=== PATIENT | female | born 1965 | race Caucasian/White ===

== ENCOUNTER 2020-05-22 07:52 | Day surgery (SDC) | payer OTHER ==
[~2020-05-22] VITALS: Ht 160 cm; Wt 44.8 kg
[2020-05-22] MEDS ORDERED: EUTHYROX125 MCG PO (08:16)
[2020-05-22] MEDS ORDERED: POTCHL20ER PO (08:16)
[2020-05-22] MEDS ORDERED: FLUT1DIS2 INH (08:17)
--- NOTE | 2020-05-22 08:31 | NUR ---
Ambulatory in Day SurgeryPatient states colon prep results BRIGHT RED WITH A GREEN TINT.History, Chart, Medications and Allergies reviewed before start of procedure.Lungs clear T/O to Auscultation. Patient confirms NPO status and agrees with scheduled surgery.
--- NOTE | 2020-05-22 08:34 | NUR ---
PT STATES SHE HAS NOT HAD A PERIOD FOR 4 YEARS.
--- NOTE | 2020-05-22 09:09 | NUR ---
05/22/20 0909 ShaynaKenna R History, Chart, Medications and Allergies reviewed before start of procedure.Patient confirms NPO status and agrees with scheduled surgery.3-LEAD EKG REVIEWED WITH PHYSICIAN PRIOR TO START OF PROCEDURE.MONITOR INTACT WITH CONTINUOUS PULSE OXIMETRY AND INTERMITTENT BP.O2 VIA N/C INTACT THROUGHOUT SEDATION/PROCEDURE. PATIENT DETERMINED TO BE ASA APPROPRIATE FOR PROPOFOL SEDATION PRIOR TO START OF PROCEDURE BY DR. BRITO
--- NOTE | 2020-05-22 10:13 | NUR ---
Ambulatory in Day SurgeryPatient up to Ambulate independently. Gait steady. Discharge instructions reviewed with patient. Patient verbalizes understanding. Copy given to patient to take home.Lungs clear T/O to Auscultation. Patient States Post-Procedure ride home has been arranged. Discharged via wheelchair to private car for ride home.
== END 2020-05-22 10:17 | disposition home or self-care (01) ==
LOC: ORSCMMR 07:52 → ORD 09:00 → ORSCMMR 10:17
PROVIDERS: Internal Medicine Gastroenterology
PROC: 0DBK8ZX Excision of Ascending Colon, Via Natural or Artificial Opening Endoscopic, Diagnostic (ICD-10-PCS; principal; 2020-05-22 09:00)
PROC: 0DBN8ZX Excision of Sigmoid Colon, Via Natural or Artificial Opening Endoscopic, Diagnostic (ICD-10-PCS; principal; 2020-05-22 09:00)
DX: Z12.11 Encounter for screening for malignant neoplasm of colon (principal); Z86.010 Personal history of colon polyps; K63.5 Polyp of colon; D12.2 Benign neoplasm of ascending colon; K57.30 Diverticulosis of large intestine without perforation or abscess without bleeding; J45.909 Unspecified asthma, uncomplicated; E03.9 Hypothyroidism, unspecified; Z79.899 Other long term (current) drug therapy
CPT/HCPCS: 88305; J2250; J2704; J7120

== ENCOUNTER 2024-07-15 08:35 | Emergency (ER) | payer OTHER ==
[~2024-07-15] VITALS: Ht 160 cm; Wt 42.6 kg
[~2024-07-15 08:35] MED LIST: EUTHYROX125 MCG PO; FLUT1DIS2 INH; POTCHL20ER PO
[2024-07-15 09:23] LABS: BASOPHILS ABSOLUTE AUTO 0.08 K/mm3 (0.00-0.23); BASOPHILS PERCENT AUTO 2 % (0-2); EOSINOPHILS ABSOLUTE AUTO 0.36 K/mm3 (0.00-0.68); EOSINOPHILS PERCENT AUTO 8 % (0-6); Hematocrit 38.1 % (33.0-51.0); Hemoglobin 13.1 g/dL (11.5-16.0); IMMATURE GRAN ABSOLUTE AUTO 0.01 K/mm3 (0.00-0.10); IMMATURE GRAN PERCENT AUTO 0 % (0-1); LYMPHOCYTES ABSOLUTE AUTO 1.39 K/mm3 (0.84-5.20); LYMPHOCYTES PERCENT AUTO 32 % (21-46); MONOCYTES ABSOLUTE AUTO 0.44 K/mm3 (0.16-1.47); MONOCYTES PERCENT AUTO 10 % (4-13); Mean Corpuscular HGB 35.4 pg (26.0-34.0); Mean Corpuscular HGB Conc 34.4 g/dL (31.5-36.5); Mean Corpuscular Volume 103 fL (80-100); Mean Platelet Volume 10.2 fL (9.1-12.4); NEUTROPHILS ABSOLUTE AUTO 2.05 K/mm3 (1.96-9.15); NEUTROPHILS PERCENT AUTO 47 % (41-73); Platelet Count 247 K/mm3 (150-400); RDW Coefficient Variation 16.2 % (11.7-14.2); RDW Standard Deviation 61.5 fL (35.1-46.3); White Blood Cell Count 4.33 K/mm3 (4.00-11.30)
[2024-07-15 09:55] LABS: Albumin, Blood 3.3 g/dL (3.4-5.0); Albumin/Globulin Ratio 0.8 (0.8-1.8); Bun/Creatinine Ratio 6.8 (12.0-20.0); Calcium, Blood 10.1 mg/dL (8.5-10.1); Creatinine, Blood 0.73 mg/dL (0.40-1.00); Globulin, Blood 4.1 g/dL (2.2-4.0); Total Protein, Blood 7.4 g/dL (6.4-8.2)
[2024-07-15 10:42] LABS: Source, Urine Clean Catch
[2024-07-15 10:53] LABS: Bilirubin, Urine Neg (Neg); Blood, Urine 1+ (Neg); Glucose Qualitative, Urine Neg (Neg); Ketones, Urine 1+ (Neg); Leukocyte Esterase, Urine Neg (Neg); Nitrite, Urine Neg (Neg); Protein, Urine Neg (Neg); Urobilinogen, Urine NORM (Normal)
[2024-07-15 11:08] LABS: Appearance, Urine Clear (Clear); Color, Urine Yellow (P-Yellow)
[2024-07-15 11:09] LABS: Bacteria Not Seen /hpf; Red Blood Cells, Urine 0-2 /hpf (0-2); Squamous Epithelial Cells Rare /hpf (Few); White Blood Cells, Urine Not Seen /hpf (0-5)
[2024-07-15] MEDS ORDERED: Flagyl500 MG PO (12:04)
[2024-07-15] MEDS ORDERED: Cipro500 MG PO (12:04)
[2024-07-15 12:26] VITALS: BP 109/71
== END 2024-07-15 12:26 | disposition home or self-care (01) ==
LOC: ER 08:35
PROVIDERS: Student in an Organized Health Care Education/Training Program
DX: K52.9 Noninfective gastroenteritis and colitis, unspecified (principal); Z87.891 Personal history of nicotine dependence; J45.909 Unspecified asthma, uncomplicated; Z88.0 Allergy status to penicillin; Z88.2 Allergy status to sulfonamides; Z88.8 Allergy status to other drugs, medicaments and biological substances; Z79.899 Other long term (current) drug therapy
CPT/HCPCS: 74177; 80053; 81001; 81025; 83690; 85025; 93005; 93010; 99284-25; Q9967

== ENCOUNTER 2024-11-03 07:19 | Day surgery (SDC) | payer OTHER ==
[~2024-11-03] VITALS: Ht 160 cm; Wt 43.8 kg
[~2024-11-03 07:19] MED LIST changes: +Cipro500 MG PO; +Flagyl500 MG PO
[2024-11-03] MEDS ORDERED: MIRALAX17 GM (07:44)
[2024-11-03] MEDS ORDERED: PANT40 (07:44)
[2024-11-03] MEDS ORDERED: Lactated Ringer's 1,000 ML IV ONE ×2 (08:16→08:45)
[2024-11-03] MEDS ORDERED: propofoL 50 ML IV ONE (08:16)
[2024-11-03 10:22] VITALS: BP 111/71
== END 2024-11-03 10:15 | disposition home or self-care (01) ==
LOC: ORSCSDS 07:19
DX: K62.5 Hemorrhage of anus and rectum (principal); D12.0 Benign neoplasm of cecum; D12.2 Benign neoplasm of ascending colon; K64.8 Other hemorrhoids; Z86.0100 Personal history of colon polyps, unspecified; K44.9 Diaphragmatic hernia without obstruction or gangrene; K21.9 Gastro-esophageal reflux disease without esophagitis; Z80.0 Family history of malignant neoplasm of digestive organs; E78.5 Hyperlipidemia, unspecified; K59.00 Constipation, unspecified; R12 Heartburn; Z87.891 Personal history of nicotine dependence; Z86.0102 Personal history of hyperplastic colon polyps; Z86.0101 Personal history of adenomatous and serrated colon polyps; Z79.899 Other long term (current) drug therapy
CPT/HCPCS: 88305; 88342; J2704; J7120

== ENCOUNTER 2025-01-03 22:05 | Observation (INO) | payer OTHER ==
[~2025-01-03] VITALS: Ht 160 cm; Wt 43.6 kg
[~2025-01-03 22:05] MED LIST changes: +MIRALAX17 GM; +PANT40
[2025-01-03 23:09] LABS: BASOPHILS PERCENT AUTO 1 % (0-2); EOSINOPHILS ABSOLUTE AUTO 0.03 K/mm3 (0.00-0.68); EOSINOPHILS PERCENT AUTO 0 % (0-6); Hematocrit 36.4 % (33.0-51.0); Hemoglobin 10.6 g/dL (11.5-16.0); IMMATURE GRAN ABSOLUTE AUTO 0.43 K/mm3 (0.00-0.10); IMMATURE GRAN PERCENT AUTO 2 % (0-1); LYMPHOCYTES ABSOLUTE AUTO 2.94 K/mm3 (0.84-5.20); LYMPHOCYTES PERCENT AUTO 12 % (21-46); MONOCYTES ABSOLUTE AUTO 0.85 K/mm3 (0.16-1.47); MONOCYTES PERCENT AUTO 3 % (4-13); Mean Corpuscular HGB Conc 29.1 g/dL (31.5-36.5); Mean Corpuscular Volume 106 fL (80-100); NEUTROPHILS ABSOLUTE AUTO 20.74 K/mm3 (1.96-9.15); NEUTROPHILS PERCENT AUTO 82 % (41-73); NRBC ABSOLUTE 0.13 K/mm3 (0.00-0.02); NRBC Auto 0.5 /100 WBC (0.0-0.2); Platelet Count 245 K/mm3 (150-400); RDW Coefficient Variation 21.2 % (11.7-14.2); RDW Standard Deviation 81.9 fL (35.1-46.3); Red Blood Cell Count 3.42 M/mm3 (3.80-5.20); White Blood Cell Count 25.19 K/mm3 (4.00-11.30)
[2025-01-03 23:34] LABS: Albumin, Blood 3.3 g/dL (3.4-5.0); Albumin/Globulin Ratio 0.8 (0.8-1.8); Bilirubin, Total 0.6 mg/dL (0.1-1.0); Bun/Creatinine Ratio 8.3 (12.0-20.0); Calcium, Blood 8.3 mg/dL (8.5-10.1); Creatinine, Blood 1.09 mg/dL (0.40-1.00); Globulin, Blood 3.9 g/dL (2.2-4.0); Potassium, Blood 4.6 mmol/L (3.5-5.5); Total Protein, Blood 7.2 g/dL (6.4-8.2)
[2025-01-03] MEDS ORDERED: Ondansetron HCl 2 MG / ML 2ML Vial IV ONE (23:50)
[2025-01-03] MEDS ORDERED: Diazepam 5 MG / ML 2ML SYR IV ONE (23:50)
[2025-01-03] MEDS ORDERED: NS 1,000 ML IV SCH (23:50)
[2025-01-04] MEDS ORDERED: ChlordiazePOXIDE 25 MG Cap PO PRN (05:25)
[2025-01-04] MEDS ORDERED: Acetaminophen 325 MG TABLET PO PRN (05:25)
[2025-01-04] MEDS ORDERED: Ondansetron HCl 2 MG / ML 2ML Vial IV PRN (05:30)
[2025-01-04] MEDS ORDERED: LORazepam 1 MG Tab PO PRN (05:30)
[2025-01-04] MEDS ORDERED: Ketorolac Tromethamine 15mg Vial IV PRN (05:35)
[2025-01-04] MEDS ORDERED: Thiamine HCl 100 MG in NS 50 ML IV SCH (06:00)
[2025-01-04] MEDS ORDERED: Lactated Ringer's 1,000 ML IV SCH ×2 (06:00→17:45)
[2025-01-04] MEDS ORDERED: Folic Acid 1 MG in NS 50 ML IV SCH (06:00)
[2025-01-04 06:18] LABS: IMMATURE RETIC FRACTION 20.4 % (2.3-16.0); RETICULOCYTE ABSOLUTE 0.0846 M/mm3 (0.0200-0.1100); RETICULOCYTE COUNT PERCENT 2.99 % (0.50-2.50)
[2025-01-04 06:42] LABS: Ethanol (Alcohol), Blood, Med <3 mg/dL; Ferritin, Serum 159 ng/mL (8-252); Iron Serum 165 ug/dL (50-170); Percent Saturation 67.3 % (15.0-50.0); Total Iron Binding Capacity 245 ug/dL (250-450)
[2025-01-04 07:00] LABS: Phosphorus, Blood 3.6 mg/dL (2.5-4.9)
[2025-01-04] MEDS ORDERED: LEVOTHYROXINE112 M18 PO (07:15)
[2025-01-04] MEDS ORDERED: GABA100 PO (07:16)
--- NOTE | 2025-01-04 07:42 | NUR ---
REPORT RECIEVED FROM ER NURSE AT [id number].
[2025-01-04] MEDS ORDERED: PANT40 PO (08:16)
[2025-01-04] MEDS ORDERED: MIRALAX17 GM PO (08:17)
[2025-01-04] MEDS ORDERED: Docusate Sodium 100 MG Cap PO SCH (09:00)
[2025-01-04] MEDS ORDERED: Pantoprazole Sodium 40 MG Tab PO SCH (09:35)
[2025-01-04] MEDS ORDERED: Levothyroxine Sodium 0.125 MG Tab PO SCH (09:35)
[2025-01-04] MEDS ORDERED: Bisacodyl 10 MG Supp PR PRN (11:00)
[2025-01-04 11:12] LABS: BASOPHILS ABSOLUTE AUTO 0.05 K/mm3 (0.00-0.23); BASOPHILS PERCENT AUTO 0 % (0-2); EOSINOPHILS ABSOLUTE AUTO 0.05 K/mm3 (0.00-0.68); EOSINOPHILS PERCENT AUTO 0 % (0-6); Hematocrit 29.5 % (33.0-51.0); Hemoglobin 8.9 g/dL (11.5-16.0); IMMATURE GRAN ABSOLUTE AUTO 0.08 K/mm3 (0.00-0.10); IMMATURE GRAN PERCENT AUTO 1 % (0-1); LYMPHOCYTES ABSOLUTE AUTO 1.08 K/mm3 (0.84-5.20); LYMPHOCYTES PERCENT AUTO 9 % (21-46); MONOCYTES ABSOLUTE AUTO 0.64 K/mm3 (0.16-1.47); MONOCYTES PERCENT AUTO 5 % (4-13); Mean Corpuscular HGB 30.9 pg (26.0-34.0); Mean Corpuscular HGB Conc 30.2 g/dL (31.5-36.5); Mean Corpuscular Volume 102 fL (80-100); Mean Platelet Volume 10.5 fL (9.1-12.4); NEUTROPHILS ABSOLUTE AUTO 9.87 K/mm3 (1.96-9.15); NEUTROPHILS PERCENT AUTO 84 % (41-73); Platelet Count 167 K/mm3 (150-400); RDW Standard Deviation 76.5 fL (35.1-46.3); Red Blood Cell Count 2.88 M/mm3 (3.80-5.20); White Blood Cell Count 11.77 K/mm3 (4.00-11.30)
[2025-01-04 11:28] LABS: Albumin, Blood 2.9 g/dL (3.4-5.0); Albumin/Globulin Ratio 0.9 (0.8-1.8); Bilirubin, Total 0.9 mg/dL (0.1-1.0); Calcium, Blood 7.7 mg/dL (8.5-10.1); Globulin, Blood 3.3 g/dL (2.2-4.0); Magnesium, Blood 1.4 mg/dL (1.6-2.4); Potassium, Blood 4.3 mmol/L (3.5-5.5); Total Protein, Blood 6.2 g/dL (6.4-8.2)
[2025-01-04 11:35] VITALS: BP 98/63
[2025-01-04] MEDS ORDERED: Lactulose 20 GM/30 ML UDC PO SCH (13:00)
[2025-01-04 15:55] VITALS: BP 118/79
--- NOTE | 2025-01-04 17:54 | NUR ---
SHIFT SUMMARY PT A/OX4 AND COOPERATIVE OF CARE. PT ABLE TO EXPRESS NEEDS AND CALLS APPROPIATE. PT INDEPENDENT IN ROOM AND BED, TOLERATES WELL. PT VSS THROUGHOUT SHIFT WITH O2 SATS IN THE 90'S ON RA. NO REPORT OF CHEST PAIN/PRESSURE THROUGOUT SHIFT. PT REPORT NAUSEA THIS MORNING, IMPROVED THIS EVENING. PT REPORTED CRAMPING OF STOMACH REGION RELATED TO CONSTIPATION, TREATED PER EMAR. PT ABLE TO HAVE A COUPLE SMALL BUT HARD STOOLS AT BEGINNING OF SHIFT. PT ABLE TO HAVE MULTPILE OTHER BM'S, NOTIFIED AND LACTULOSE DC'D. PT ABLE TO TOLERATE LIQUIDS AND LITTLE SOLID FOODS THIS EVENING. PT TO BEDSIDE TWICE THIS SHIFT AND UPDATED OF PLAN OF CARE.
[2025-01-04 19:19] VITALS: BP 106/57
[2025-01-05] VITALS (7 sets, daily range): BP systolic 92–114; BP diastolic 59–76
[2025-01-05 04:07] LABS: BASOPHILS ABSOLUTE AUTO 0.04 K/mm3 (0.00-0.23); BASOPHILS PERCENT AUTO 0 % (0-2); EOSINOPHILS ABSOLUTE AUTO 0.16 K/mm3 (0.00-0.68); EOSINOPHILS PERCENT AUTO 2 % (0-6); Hematocrit 26.6 % (33.0-51.0); Hemoglobin 8.3 g/dL (11.5-16.0); IMMATURE GRAN ABSOLUTE AUTO 0.05 K/mm3 (0.00-0.10); IMMATURE GRAN PERCENT AUTO 1 % (0-1); LYMPHOCYTES ABSOLUTE AUTO 0.49 K/mm3 (0.84-5.20); LYMPHOCYTES PERCENT AUTO 5 % (21-46); MONOCYTES ABSOLUTE AUTO 0.25 K/mm3 (0.16-1.47); MONOCYTES PERCENT AUTO 3 % (4-13); Mean Corpuscular HGB Conc 31.2 g/dL (31.5-36.5); Mean Platelet Volume 9.9 fL (9.1-12.4); NEUTROPHILS ABSOLUTE AUTO 9.04 K/mm3 (1.96-9.15); NEUTROPHILS PERCENT AUTO 90 % (41-73); NRBC ABSOLUTE 0.02 K/mm3 (0.00-0.02); NRBC Auto 0.2 /100 WBC (0.0-0.2); Platelet Count 141 K/mm3 (150-400); RDW Coefficient Variation 20.8 % (11.7-14.2); RDW Standard Deviation 72.4 fL (35.1-46.3); Red Blood Cell Count 2.77 M/mm3 (3.80-5.20); White Blood Cell Count 10.03 K/mm3 (4.00-11.30)
[2025-01-05 04:12] LABS: Mean Corpuscular Volume 96 fL (80-100)
--- NOTE | 2025-01-05 04:19 | NUR ---
SHIFT SUMMARY. PATIENT IS ALERT AND ORIENTED X4, CALLS APPROPRIATELY AND IS ABLE TO MAKE HER NEEDS KNOWN. PATIENT IS INDEPENDENT IN ROOM. TAKES MEDICATIONS WHOLE WITH WATER W/O DIFFICULTY. PATIENT HAS REPORTED LOOSE/WATERY STOOLS THIS SHIFT-DURING THE DAYSHIFT ON 01/04/25 PATIENT RECEIVED MEDICATIONS TO AID IN RELIEF OF CONSTIPATION. PATIENT SELF REPORTS BOWEL MOVEMENTS. PATIENT HAS DENIED CHEST PAIN/PRESSIRE/TIGHTNESS THIS SHIFT. REPORTS NO PAIN. PATIENT IS PLEASANT AND COOPERATIVE WITH CARE. PATIENT REPORTS THAT SHE FEELS FULL AND SWOLLEN FROM THE FLUIDS AND THAT IT IS UNCOMFORTABLE. PATIENTS VSS, AFEBRILE, AND NO NAUSEA THIS SHIFT. ROUNDING DONE PER UNIT PROTOCOL. BED IS LOCKED IN THE LOWEST POSITION WITH CALL LIGHT IN REACH, CARE IS ONGOING.
[2025-01-05 05:14] LABS: Albumin, Blood 2.6 g/dL (3.4-5.0); Albumin/Globulin Ratio 0.9 (0.8-1.8); Beta-hydroxybutyrate 6.9 mg/dL (0.2-2.8); Bilirubin, Total 0.7 mg/dL (0.1-1.0); Bun/Creatinine Ratio 5.4 (12.0-20.0); Calcium, Blood 8.4 mg/dL (8.5-10.1); Creatinine, Blood 0.74 mg/dL (0.40-1.00); Magnesium, Blood 1.4 mg/dL (1.6-2.4); Potassium, Blood 3.3 mmol/L (3.5-5.5); Total Protein, Blood 5.6 g/dL (6.4-8.2)
[2025-01-05] MEDS ORDERED: Potassium Chloride 10 Meq Tablet SA PO ONE (08:30)
[2025-01-05] MEDS ORDERED: Magnesium Sulf 2 GM/Water 50ML 50 ML IV ONE (08:30)
[2025-01-05 08:58] LABS: Free Thyroxine 1.1 ng/dL (0.70-1.60); Thyroid Stimulating Hormone 7.46 uIU/mL (0.360-4.800)
[2025-01-05] MEDS ORDERED: Formoterol/Mometasone MDI 5/100 mcg 13 GM INH SCH (12:55)
--- NOTE | 2025-01-05 15:25 | NUR ---
SHIFT SUMMARY/ HAND OFF TO TITA PT A/OX4 AND COOPERATIVE OF CARE. PT ABLE TO EXPRESS NEEDS AND CALLS APPORPIATE. PT VSS THROUGHOUT SHIFT WITH O2 SATS IN KIKO 90'S ON RA. NO REPORT OF CHEST PAIN/PRESSURE THROUGHOUT SHIFT. NO REPORT OF SOB/DYSPNEA THROUGHOUT SHIFT. NO REPORT OF N/V. PT INDEPENDENT IN ROOM AND BED. PT ENDORSED PAIN TO HER JAW RELATED TO CHEWING, STATED THAT IT "FEELS LIKE THE PAIN FROM CHEWING SOMETHING VERY SOUR." NOTIFIED. PT SEEN BY DENTAL HYGENIST TODAY, SEE NOTES.
--- NOTE | 2025-01-05 20:49 | NUR ---
TRANSFER OF CARE PT A&O X4, CALM, COOPERATIVE TO CARE, CIWAS PRN. LAST CIWA OF 1 FOR A HEADACHE. PER PT SHE REPORTS HEADACHE RELATED TO EATING DINNER. HR IN THE 70'S-80'S, SR. SHE DENIES ANY CP/PRESSURE, NUMB/TINGLING, SBP STABLE. O2 >92% ON RA. SHE DENIES ANY SOB. +BS, SHE DENIES ANY N/V, SHE REPORTS LOOSE BM T/O NIGHT. PT RESTIN IN BED CALL LIGHT IN REACH. PT MEDICAL STATUS WITH TELEMETRY. PT HAS ROOM AVAILABLE UPSTAIRS. REPORT GIVEN TO MEDICAL FLOOR NURSE.
--- NOTE | 2025-01-05 21:27 | NUR ---
PT TRANSFERED TO MEDICAL FLOOR WITH THIS RN VIA WHEELCHAIR.
[2025-01-06 05:05] LABS: BASOPHILS ABSOLUTE AUTO 0.05 K/mm3 (0.00-0.23); BASOPHILS PERCENT AUTO 1 % (0-2); EOSINOPHILS ABSOLUTE AUTO 0.17 K/mm3 (0.00-0.68); EOSINOPHILS PERCENT AUTO 3 % (0-6); Hematocrit 27.3 % (33.0-51.0); Hemoglobin 8.6 g/dL (11.5-16.0); IMMATURE GRAN ABSOLUTE AUTO 0.02 K/mm3 (0.00-0.10); IMMATURE GRAN PERCENT AUTO 0 % (0-1); LYMPHOCYTES ABSOLUTE AUTO 0.99 K/mm3 (0.84-5.20); LYMPHOCYTES PERCENT AUTO 18 % (21-46); MONOCYTES ABSOLUTE AUTO 0.18 K/mm3 (0.16-1.47); MONOCYTES PERCENT AUTO 3 % (4-13); Mean Corpuscular HGB 30.9 pg (26.0-34.0); Mean Corpuscular HGB Conc 31.5 g/dL (31.5-36.5); Mean Corpuscular Volume 98 fL (80-100); Mean Platelet Volume 10.2 fL (9.1-12.4); NEUTROPHILS PERCENT AUTO 75 % (41-73); Platelet Count 144 K/mm3 (150-400); RDW Coefficient Variation 21.3 % (11.7-14.2); RDW Standard Deviation 74.4 fL (35.1-46.3); Red Blood Cell Count 2.78 M/mm3 (3.80-5.20); White Blood Cell Count 5.61 K/mm3 (4.00-11.30)
[2025-01-06 05:55] VITALS: BP 106/69
[2025-01-06 06:22] LABS: Albumin, Blood 2.6 g/dL (3.4-5.0); Albumin/Globulin Ratio 0.8 (0.8-1.8); Beta-hydroxybutyrate 1.9 mg/dL (0.2-2.8); Bilirubin, Total 0.4 mg/dL (0.1-1.0); Bun/Creatinine Ratio 4.3 (12.0-20.0); Calcium, Blood 7.9 mg/dL (8.5-10.1); Creatinine, Blood 0.69 mg/dL (0.40-1.00); Globulin, Blood 3.2 g/dL (2.2-4.0); Magnesium, Blood 1.8 mg/dL (1.6-2.4); Phosphorus, Blood 1.7 mg/dL (2.5-4.9); Potassium, Blood 3.1 mmol/L (3.5-5.5); Total Protein, Blood 5.8 g/dL (6.4-8.2)
--- NOTE | 2025-01-06 07:31 | NUR ---
SHIFT SUMMARY; AFTER TRANSFER VIA W/C FROM [facility] AT 2104, PT. C/O HEADACHE. TYLENOL GIVEN. TELE SR 76 SLEPT THE REST OF THE NIGHT.
[2025-01-06 07:56] VITALS: BP 113/69
[2025-01-06] MEDS ORDERED: Potassium Chloride 20 MEQ TabCR PO SCH (09:00)
[2025-01-06] MEDS ORDERED: Zinc Sulfate 220 MG Cap (Provides 50MG) PO SCH (09:00)
[2025-01-06] MEDS ORDERED: Folic Acid 1 MG TAB PO SCH (09:00)
[2025-01-06] MEDS ORDERED: Thiamine HCl 100 MG Tab PO SCH (09:00)
[2025-01-06] MEDS ORDERED: FOLI1 PO (10:43)
[2025-01-06] MEDS ORDERED: B-1100 M1 PO (10:44)
--- NOTE | 2025-01-06 11:05 | NUR ---
DISCHARGE PT AOX4, COOPERATIVE, ABLE TO MAKE NEEDS KNOWN. PT IS IND IN ROOM . CONTINENET. TELE AND IV DC'D BY GUEST ATTENDANT. THIS RN WENT OVER DC PAPER WORK WITH PT AND FAMILY MEMBER. PT DID OPT TO AMBULATE OUT OF HOSPITAL OVER WC.
[2025-01-07 02:43] LABS: ZINC,SERUM/PLASMA 41.6 ug/dL (60.0-120.0)
== END 2025-01-06 11:03 | disposition home or self-care (01) ==
LOC: ER 22:05 → ERHOLD 22:06 → PCU 22:06 → MEDS 01-05 21:08
PROVIDERS: Emergency Medicine; Internal Medicine; ADMIT Student in an Organized Health Care Education/Training Program
DX: R53.1 Weakness (principal); E87.29 Other acidosis; F10.20 Alcohol dependence, uncomplicated; K70.10 Alcoholic hepatitis without ascites; D53.9 Nutritional anemia, unspecified; E86.0 Dehydration; N17.9 Acute kidney failure, unspecified; E03.9 Hypothyroidism, unspecified; K21.9 Gastro-esophageal reflux disease without esophagitis; K44.9 Diaphragmatic hernia without obstruction or gangrene; K64.8 Other hemorrhoids; E16.2 Hypoglycemia, unspecified; D72.829 Elevated white blood cell count, unspecified; Z87.891 Personal history of nicotine dependence; Z88.0 Allergy status to penicillin; Z88.2 Allergy status to sulfonamides; Z88.8 Allergy status to other drugs, medicaments and biological substances; Z79.899 Other long term (current) drug therapy
CPT/HCPCS: 36415; 74177; 76705; 80053; 80320; 82010; 82607; 82728; 82746; 82947; 83540; 83550; 83605; 83690; 83735; 84100; 84439; 84443; 84630; 85025; 85045; 93005; 93010; 94640; 94664; 94760; 96361; 96365-59; 96366; 96367; 96368; 96375; 96376; 97112; 97161; 99285-25; A9270; G0378; J1885; J2405; J3360; J3411; J3475; J7030; J7120; Q9967

== ENCOUNTER 2025-05-22 15:34 | Observation (INO) | payer OTHER ==
[~2025-05-22] VITALS: Ht 160 cm; Wt 42.6 kg
[~2025-05-22 15:34] MED LIST changes: +B-1100 M1 PO; +FOLI1 PO; +GABA100 PO; +LEVOTHYROXINE112 M18 PO; +MIRALAX17 GM PO; +PANT40 PO
[2025-05-22] MEDS ORDERED: Metoclopramide HCl 5MG / ML 2ML Vial IV ONE (16:35)
[2025-05-22] MEDS ORDERED: NS 1,000 ML IV SCH ×2 (16:35→18:30)
[2025-05-22 16:39] LABS: BASOPHILS ABSOLUTE AUTO 0.11 K/mm3 (0.00-0.23); BASOPHILS PERCENT AUTO 1 % (0-2); EOSINOPHILS ABSOLUTE AUTO 0.00 K/mm3 (0.00-0.68); EOSINOPHILS PERCENT AUTO 0 % (0-6); Hematocrit 35.5 % (33.0-51.0); Hemoglobin 10.3 g/dL (11.5-16.0); IMMATURE GRAN ABSOLUTE AUTO 0.17 K/mm3 (0.00-0.10); IMMATURE GRAN PERCENT AUTO 1 % (0-1); LYMPHOCYTES ABSOLUTE AUTO 1.36 K/mm3 (0.84-5.20); LYMPHOCYTES PERCENT AUTO 7 % (21-46); MONOCYTES ABSOLUTE AUTO 1.27 K/mm3 (0.16-1.47); MONOCYTES PERCENT AUTO 7 % (4-13); Mean Corpuscular HGB Conc 29.0 g/dL (31.5-36.5); Mean Corpuscular Volume 101 fL (80-100); NEUTROPHILS ABSOLUTE AUTO 16.17 K/mm3 (1.96-9.15); NEUTROPHILS PERCENT AUTO 85 % (41-73); NRBC ABSOLUTE 0.04 K/mm3 (0.00-0.02); NRBC Auto 0.2 /100 WBC (0.0-0.2); Platelet Count 619 K/mm3 (150-400); RDW Coefficient Variation 23.0 % (11.7-14.2); RDW Standard Deviation 84.2 fL (35.1-46.3)
[2025-05-22 17:27] LABS: Alanine Aminotransfer (ALT/SGP 130.0 U/L (12-78); Albumin, Blood 3.7 g/dL (3.4-5.0); Albumin/Globulin Ratio 1.0 (0.8-1.8); Anion Gap 31.0 mmol/L (3-11); Aspartate Aminotrans (AST/SGOT 784.0 U/L (12-37); Bilirubin, Total 1.1 mg/dL (0.1-1.0); Blood Urea Nitrogen 8.0 mg/dL (8-24); CO2, Blood 11.0 mmol/L (21-32); Calcium, Blood 9.3 mg/dL (8.5-10.1); Chloride, Blood 100.0 mmol/L (98-108); Creatinine, Blood 1.05 mg/dL (0.40-1.00); Globulin, Blood 3.8 g/dL (2.2-4.0); Glucose, Blood 68.0 mg/dL (70-99); Potassium, Blood 4.5 mmol/L (3.5-5.5); Sodium, Blood 137.0 mmol/L (136-145); Thyroid Stimulating Hormone 0.49 uIU/mL (0.360-4.800); Total Protein, Blood 7.5 g/dL (6.4-8.2)
[2025-05-22 18:02] LABS: Source, Urine Clean Catch
[2025-05-22 18:11] LABS: Bilirubin, Urine Neg (Neg); Color, Urine Yellow (P-Yellow); Glucose Qualitative, Urine Neg (Neg); Ketones, Urine 4+ (Neg); Leukocyte Esterase, Urine Neg (Neg); Protein, Urine 2+ (Neg); Specific Gravity, Urine 1.030 (1.003-1.022); Urobilinogen, Urine NORM (Normal)
[2025-05-22 18:19] LABS: White Blood Cells, Urine 0-2 /hpf (0-5)
[2025-05-22] MEDS ORDERED: FLU VACC TS2025-26(6MOS UP)/PF 45 MCG/0.5 ML SYRINGE IM SCH (19:45)
[2025-05-22] MEDS ORDERED: FentaNYL Citrate 50 MCG/ML 2 ML Injection IV PRN (19:45)
[2025-05-22] MEDS ORDERED: Ondansetron HCl 2 MG / ML 2ML Vial IV PRN (19:45)
[2025-05-22] MEDS ORDERED: Sodium Bicarb 8.4% 1 MEQ/ML 50 ML Vial IV ONE (20:00)
[2025-05-22] MEDS ORDERED: Sodium Bicarb 8.4% Inj 100 MEQ in Sodium Chloride 0.45% 1,000 ML IV SCH (20:30)
[2025-05-22 20:59] VITALS: BP 121/83
--- NOTE | 2025-05-22 22:40 | NUR ---
ARRIVAL TO PCU PT ARRIVED TO PCU ROOM 8 FROM THE ER, PT WAS ABLE TO STAND AND PIVOT TO THE BED. SHE REPORTS TO CAME IN D/T N/V, SHE HAS BEEN UNABLE TO KEEP FOOD OR DRINKS DOWN FOR AROUND 9 OR 10 DAYS. SHE ALSO REPORTS NO BM FOR AROUND 10 DAYS WELL. SHE DID ENDOURSE DRINKING AROUND 4-6 SHOTS OF TEQUILA EACH NIGHT. SHE STATED SHE WENT TO A [facility] RECENTLY ON HER OWN BUT LEFT SHORTLY AFTER BECUASE SHE DID NOT FEEL COMFORTABLE THERE, SHE IS OPEN TO QUITTING. DENIES HAVING EVER WENT THROUGH WITHDRAWLS. SHE IS A+OX4 ABLE TO MAKE NEEDS KNOWN. BILATERAL AC IV'S BOTH INFUSING PER EMAR. SCD'S IN PLACE, BED IN LOW, CALL LIGHT IN REACH.
[2025-05-22 23:26] VITALS: BP 112/72
[2025-05-23] MEDS ORDERED: Formoterol/Mometasone MDI 5/100 mcg 13 GM INH SCH (00:05)
[2025-05-23 00:48] LABS: Anion Gap 13 mmol/L (3-11); Blood Urea Nitrogen 6 mg/dL (8-24); CHOL/HDL RATIO 2.0; CO2, Blood 26 mmol/L (21-32); Chloride, Blood 103 mmol/L (98-108); Cholesterol 127 mg/dL (50-200); Creatinine, Blood 0.66 mg/dL (0.40-1.00); Glucose, Blood 117 mg/dL (70-99); HDL Cholesterol 64 mg/dL (>39); LDL/HDL RATIO 0.5; Low Density Lipoprotein Chol 31 mg/dL (0-110); Potassium, Blood 4.0 mmol/L (3.5-5.5); Sodium, Blood 138 mmol/L (136-145); Triglycerides 158 mg/dL (30-160); Very Low Density Lipoprot Chol 31 mg/dL (6-32)
[2025-05-23 00:51] LABS: Calcium, Blood 7.2 mg/dL (8.5-10.1)
[2025-05-23 04:14] VITALS: BP 109/58
[2025-05-23 06:10] LABS: BASOPHILS ABSOLUTE AUTO 0.03 K/mm3 (0.00-0.23); BASOPHILS PERCENT AUTO 0 % (0-2); EOSINOPHILS ABSOLUTE AUTO 0.05 K/mm3 (0.00-0.68); EOSINOPHILS PERCENT AUTO 1 % (0-6); Hematocrit 25.1 % (33.0-51.0); Hemoglobin 7.9 g/dL (11.5-16.0); IMMATURE GRAN ABSOLUTE AUTO 0.03 K/mm3 (0.00-0.10); IMMATURE GRAN PERCENT AUTO 0 % (0-1); LYMPHOCYTES ABSOLUTE AUTO 0.82 K/mm3 (0.84-5.20); LYMPHOCYTES PERCENT AUTO 12 % (21-46); MONOCYTES ABSOLUTE AUTO 0.45 K/mm3 (0.16-1.47); MONOCYTES PERCENT AUTO 7 % (4-13); Mean Corpuscular HGB Conc 31.5 g/dL (31.5-36.5); NEUTROPHILS ABSOLUTE AUTO 5.34 K/mm3 (1.96-9.15); NEUTROPHILS PERCENT AUTO 80 % (41-73); NRBC ABSOLUTE 0.00 K/mm3 (0.00-0.02); NRBC Auto 0.0 /100 WBC (0.0-0.2); Platelet Count 314 K/mm3 (150-400); RDW Coefficient Variation 22.6 % (11.7-14.2); RDW Standard Deviation 74.9 fL (35.1-46.3)
[2025-05-23 06:19] LABS: Mean Corpuscular Volume 92 fL (80-100)
[2025-05-23 06:35] LABS: Alanine Aminotransfer (ALT/SGP 73.0 U/L (12-78); Albumin, Blood 2.7 g/dL (3.4-5.0); Albumin/Globulin Ratio 1.0 (0.8-1.8); Anion Gap 11.0 mmol/L (3-11); Aspartate Aminotrans (AST/SGOT 402.0 U/L (12-37); Bilirubin, Total 0.9 mg/dL (0.1-1.0); Blood Urea Nitrogen 5.0 mg/dL (8-24); CO2, Blood 29.0 mmol/L (21-32); Calcium, Blood 7.2 mg/dL (8.5-10.1); Chloride, Blood 103.0 mmol/L (98-108); Creatinine, Blood 0.6 mg/dL (0.40-1.00); Globulin, Blood 2.8 g/dL (2.2-4.0); Glucose, Blood 100.0 mg/dL (70-99); Potassium, Blood 3.6 mmol/L (3.5-5.5); Sodium, Blood 139.0 mmol/L (136-145); Total Protein, Blood 5.5 g/dL (6.4-8.2)
[2025-05-23 08:17] VITALS: BP 93/70
[2025-05-23 11:10] LABS: Ferritin, Serum 156.0 ng/mL (8-252); Total Iron Binding Capacity 275.0 ug/dL (250-450)
[2025-05-23 12:15] VITALS: BP 107/58
--- NOTE | 2025-05-23 15:30 | NUR ---
RECEIVED REPORT FROM SHON KELLY AND ASSUMED CARE OF PT.
--- NOTE | 2025-05-23 15:36 | NUR ---
CARE SUMMARY: PT HAS BEEN A&Ox4, COOPERATIVE W/CARE AND ABLE TO MAKE NEEDS KNOWN. PT DENIES SOB, O2 SATS >93% ON RA. PT DENIES CP, SR ON MONITOR, RATE 70s-80s. PT DENIES N/V, IS TOLERATING CL DIET AND PROGRESSING TO REGULAR DIET. PT HAS BEEN SBA TO BS. PT REPORTS NO BM FOR SEVERAL DAYS BUT ALSO HAS NOT TOLERATED PO INTAKE FOR SEVERAL DAYS, PROVIDER AWARE. CURRENT PLAN FOR MONITORING N/V OVERNIGHT W/POTENTIAL DC HOME TOMORROW. REPORT HAS BEEN GIVEN TO SHON BARBER TO ASSUME CARE OF PT.
[2025-05-23 15:40] VITALS: BP 107/64
--- NOTE | 2025-05-23 17:53 | NUR ---
PT SITTING IN BED WATCHING TV. NO NEEDS OR CONCERNS NOTED @ THIS TIME. BED IN LOW POSITION, CALL LIGHT AND PERSONAL BELONGINGS IN REACH.
[2025-05-23] MEDS ORDERED: Multivitamins 1 Tab PO SCH (18:25)
[2025-05-23 18:55] LABS: Magnesium, Blood 1.4 mg/dL (1.6-2.4); Phosphorus, Blood 1.3 mg/dL (2.5-4.9)
[2025-05-23 19:31] VITALS: BP 112/67
[2025-05-23] MEDS ORDERED: Magnesium Sulf 2 GM/Water 50ML 50 ML IV STA (20:03)
[2025-05-23] MEDS ORDERED: Potassium Phosphate Dibasic 20 MM in NS 500 ML IV SCH (20:30)
[2025-05-23 23:05] VITALS: BP 112/70
--- NOTE | 2025-05-23 23:08 | NUR ---
TRANSFER NOTE REPORT GIVEN TO SUDHA RN @ 1728. PATIENT TRANSFERRED BY THIS RN VIA @ 2707 WITHOUT INCIDENT. KPHOS AND MAG INFUSING DURING TRANSFER.
--- NOTE | 2025-05-23 23:31 | NUR ---
PT ARRIVED TO THE MEDICAL FLOOR AT 2300. REPORT RECEIVED FROM NEEDLE LOOM OPERATOR HELPER KOKO @3510. PT ARRIVED IN A W/C, AND TRANSFERRED INDEPENDENTLY TO THE HOSPITAL BED. PT BROUGHT ALL HER BELONINGS WIHT HER. BED AT THE LOWEST POSITION, CALL LIGHT W/I REACH. PT IS A/O X4, ABLE TO MAKE HER NEEDS KNOWN AND COOPERATIVE WITH CARE. EDUCATED COPPER PLATER LIGHT AND FALL PRECAUTIONS. ALL CARE NEEDS MET AT THIS TIME.
[2025-05-24 05:38] LABS: BASOPHILS ABSOLUTE AUTO 0.04 K/mm3 (0.00-0.23); BASOPHILS PERCENT AUTO 1 % (0-2); EOSINOPHILS ABSOLUTE AUTO 0.23 K/mm3 (0.00-0.68); EOSINOPHILS PERCENT AUTO 5 % (0-6); Hematocrit 26.3 % (33.0-51.0); Hemoglobin 8.2 g/dL (11.5-16.0); IMMATURE GRAN ABSOLUTE AUTO 0.01 K/mm3 (0.00-0.10); IMMATURE GRAN PERCENT AUTO 0 % (0-1); LYMPHOCYTES ABSOLUTE AUTO 1.20 K/mm3 (0.84-5.20); LYMPHOCYTES PERCENT AUTO 26 % (21-46); MONOCYTES ABSOLUTE AUTO 0.19 K/mm3 (0.16-1.47); MONOCYTES PERCENT AUTO 4 % (4-13); Mean Corpuscular HGB Conc 31.2 g/dL (31.5-36.5); Mean Corpuscular Volume 93 fL (80-100); NEUTROPHILS ABSOLUTE AUTO 3.00 K/mm3 (1.96-9.15); NEUTROPHILS PERCENT AUTO 64 % (41-73); NRBC ABSOLUTE 0.00 K/mm3 (0.00-0.02); NRBC Auto 0.0 /100 WBC (0.0-0.2); Platelet Count 324 K/mm3 (150-400); RDW Coefficient Variation 23.3 % (11.7-14.2); RDW Standard Deviation 78.0 fL (35.1-46.3)
[2025-05-24 05:43] VITALS: BP 119/72
[2025-05-24 05:59] LABS: Alanine Aminotransfer (ALT/SGP 57.0 U/L (12-78); Albumin, Blood 2.5 g/dL (3.4-5.0); Albumin/Globulin Ratio 0.9 (0.8-1.8); Anion Gap 6.0 mmol/L (3-11); Aspartate Aminotrans (AST/SGOT 238.0 U/L (12-37); Bilirubin, Total 0.5 mg/dL (0.1-1.0); Blood Urea Nitrogen 2.0 mg/dL (8-24); CO2, Blood 29.0 mmol/L (21-32); Calcium, Blood 7.6 mg/dL (8.5-10.1); Chloride, Blood 108.0 mmol/L (98-108); Creatinine, Blood 0.51 mg/dL (0.40-1.00); Globulin, Blood 2.8 g/dL (2.2-4.0); Glucose, Blood 114.0 mg/dL (70-99); Potassium, Blood 3.1 mmol/L (3.5-5.5); Sodium, Blood 140.0 mmol/L (136-145); Total Protein, Blood 5.3 g/dL (6.4-8.2)
[2025-05-24 06:13] LABS: Magnesium, Blood 2.2 mg/dL (1.6-2.4); Phosphorus, Blood 1.9 mg/dL (2.5-4.9)
[2025-05-24 07:23] VITALS: BP 106/69
[2025-05-24] MEDS ORDERED: Potassium Phos/Sodium Phos 250 MG PACK PO ONE (09:55)
[2025-05-24] MEDS ORDERED: VITAMIN B-1100 MG PO (10:26)
--- NOTE | 2025-05-24 11:22 | NUR ---
Patient discharged home with spouse. All belongings in patient possession prior to leaving. Patient education/instructions discussed with patient. Rx faxed to [email or web address].
== END 2025-05-24 11:03 | disposition home or self-care (01) ==
LOC: ER 15:34 → PCU 15:35 → ERHOLD 15:35 → PCU 20:55 → MEDS 05-23 22:56
PROVIDERS: Family Medicine; Student in an Organized Health Care Education/Training Program; ADMIT Internal Medicine
DX: R11.2 Nausea with vomiting, unspecified (principal); E03.9 Hypothyroidism, unspecified; K21.00 Gastro-esophageal reflux disease with esophagitis, without bleeding; K85.90 Acute pancreatitis without necrosis or infection, unspecified; E87.20 Acidosis, unspecified; N17.9 Acute kidney failure, unspecified; E87.6 Hypokalemia; E83.39 Other disorders of phosphorus metabolism; E88.89 Other specified metabolic disorders; T73.0XXA Starvation, initial encounter; X58.XXXA Exposure to other specified factors, initial encounter; Z87.891 Personal history of nicotine dependence; Z88.1 Allergy status to other antibiotic agents; Z88.2 Allergy status to sulfonamides; Z88.8 Allergy status to other drugs, medicaments and biological substances; Z79.890 Hormone replacement therapy; Z79.899 Other long term (current) drug therapy
CPT/HCPCS: 36415; 71046; 74177; 80048; 80053; 80061; 81001; 82607; 82728; 82746; 82947; 83540; 83550; 83690; 83735; 83880; 84100; 84439; 84443; 84481; 85025; 87086; 93005; 93010; 94762; 96361; 96365; 96366; 96367; 96368; 96374-59; 96375; 96376; 99285-25; A9270; G0378; J2405; J2470; J2765; J3475; J7030; J7040; Q9967

== ENCOUNTER 2025-06-16 12:55 | Day surgery (SDC) | payer OTHER ==
[~2025-06-16] VITALS: Ht 160 cm; Wt 42.4 kg
[~2025-06-16 12:55] MED LIST changes: +Glycopyrrolate 0.2 MG/ML 1MLVIAL ONE; +Ondansetron HCl 2 MG / ML 2ML Vial ONE; +VITAMIN B-1100 MG PO; +ePHEDrine Sulfate 50 MG/ML 1ML Injection ONE
[2025-06-16] MEDS ORDERED: METHYL B-12 AN1 EACH (13:41)
[2025-06-16 13:53] LABS: BASOPHILS ABSOLUTE AUTO 0.06 K/mm3 (0.00-0.23); BASOPHILS PERCENT AUTO 1 % (0-2); EOSINOPHILS ABSOLUTE AUTO 0.29 K/mm3 (0.00-0.68); EOSINOPHILS PERCENT AUTO 5 % (0-6); Hematocrit 32.6 % (33.0-51.0); Hemoglobin 9.8 g/dL (11.5-16.0); IMMATURE GRAN ABSOLUTE AUTO 0.01 K/mm3 (0.00-0.10); IMMATURE GRAN PERCENT AUTO 0 % (0-1); LYMPHOCYTES ABSOLUTE AUTO 2.14 K/mm3 (0.84-5.20); LYMPHOCYTES PERCENT AUTO 37 % (21-46); MONOCYTES ABSOLUTE AUTO 0.37 K/mm3 (0.16-1.47); MONOCYTES PERCENT AUTO 6 % (4-13); Mean Corpuscular HGB Conc 30.1 g/dL (31.5-36.5); Mean Corpuscular Volume 90 fL (80-100); NEUTROPHILS ABSOLUTE AUTO 2.87 K/mm3 (1.96-9.15); NEUTROPHILS PERCENT AUTO 50 % (41-73); NRBC ABSOLUTE 0.00 K/mm3 (0.00-0.02); NRBC Auto 0.0 /100 WBC (0.0-0.2); Platelet Count 514 K/mm3 (150-400); RDW Coefficient Variation 22.7 % (11.7-14.2); RDW Standard Deviation 73.8 fL (35.1-46.3)
[2025-06-16 14:15] LABS: Alanine Aminotransfer (ALT/SGP 70.0 U/L (12-78); Albumin, Blood 3.0 g/dL (3.4-5.0); Albumin/Globulin Ratio 0.8 (0.8-1.8); Anion Gap 8.0 mmol/L (3-11); Aspartate Aminotrans (AST/SGOT 141.0 U/L (12-37); Bilirubin, Total 0.4 mg/dL (0.1-1.0); Blood Urea Nitrogen 1.0 mg/dL (8-24); CO2, Blood 21.0 mmol/L (21-32); Calcium, Blood 8.7 mg/dL (8.5-10.1); Chloride, Blood 114.0 mmol/L (98-108); Creatinine, Blood 0.56 mg/dL (0.40-1.00); Globulin, Blood 3.9 g/dL (2.2-4.0); Glucose, Blood 101.0 mg/dL (70-99); Potassium, Blood 3.4 mmol/L (3.5-5.5); Sodium, Blood 140.0 mmol/L (136-145); Total Protein, Blood 6.9 g/dL (6.4-8.2)
[2025-06-16 16:31] VITALS: BP 105/68
--- NOTE | 2025-06-16 16:32 | NUR ---
06/16/25 1632 Fredy Martin PT VOIDED PRIOR TO D/C.
== END 2025-06-16 16:25 | disposition home or self-care (01) ==
LOC: ORSCSDS 12:55
PROVIDERS: Specialist
PROC: 0DBN8ZX Excision of Sigmoid Colon, Via Natural or Artificial Opening Endoscopic, Diagnostic (ICD-10-PCS; principal; 2025-06-16 15:00)
DX: K62.89 Other specified diseases of anus and rectum (principal); K63.5 Polyp of colon; K64.8 Other hemorrhoids; Z86.0101 Personal history of adenomatous and serrated colon polyps; Z83.719 Family history of colon polyps, unspecified; E78.5 Hyperlipidemia, unspecified; K21.9 Gastro-esophageal reflux disease without esophagitis; J45.909 Unspecified asthma, uncomplicated; E07.9 Disorder of thyroid, unspecified; Z79.899 Other long term (current) drug therapy; Z87.891 Personal history of nicotine dependence
CPT/HCPCS: 80053; 85025; 88305; J0461; J2003; J2405; J2704; J7120